=== PATIENT | male | born 1985 | race Caucasian/White ===

== ENCOUNTER 2023-02-09 05:50 | Emergency (ER) | payer SELFPAY ==
[~2023-02-09] VITALS: Ht 165.1 cm; Wt 95.3 kg
[2023-02-09 05:50] VITALS: BP 117/90; PULSE 145; RESP 20; TEMP 98.3; O2SAT 95
== END 2023-02-09 06:09 ==
LOC: MED 05:50
DX: Z02.89 Encounter for other administrative examinations (principal); F10.129 Alcohol abuse with intoxication, unspecified; Y90.9 Presence of alcohol in blood, level not specified
CPT/HCPCS: 99283